=== PATIENT | female | born 1975 | race Two or more races ===

== ENCOUNTER 2019-12-15 22:31 | Inpatient (IN) | payer MEDICAID, OTHER ==
[~2019-12-15] VITALS: Ht 157.5 cm; Wt 89.4 kg
[2019-12-16] VITALS (7 sets, daily range): BP systolic 100–168; BP diastolic 66–105
[2019-12-16] MEDS ORDERED: morphine SULFATE 10 MG/ML, 1ML IVPush ONE (01:30)
[2019-12-16] MEDS: LACTATED RINGERS 1,000 ML IV SCH ×3 (01:39→16:13)
[2019-12-16] MEDS ORDERED: TRAZODONE 50MG TABLET PO PRN (02:30)
[2019-12-16] MEDS ORDERED: ACETAMINOPHEN 325 MG TABLET PO PRN (02:30)
[2019-12-16] MEDS ORDERED: VANCOMYCIN PER PHARMACY MC PRN (02:30)
[2019-12-16] MEDS ORDERED: VANCOMYCIN 2,200 MG in SODIUM CHLORIDE 0.9% 500 ML IV ONE (03:00)
[2019-12-16] MEDS ORDERED: PHARMACOKINETIC CONSULTATION MC ONE (03:00)
[2019-12-16] MEDS ORDERED: PHARMACOKINETIC MONITORING MC PRN (03:00)
[2019-12-16] MEDS: ENOXAPARIN 40 MG/0.4 ML SQ SCH (03:14)
[2019-12-16] MEDS: PIPERACILLIN/TAZO/PMX 3.375GM 50 ML IV SCH ×4 (03:14→21:07)
[2019-12-16 03:16] LABS: BASOPHILS # (AUTO) 0.03 x10^3/uL (0-0.1); BASOPHILS % (AUTO) 0 % (0-1); EOSINOPHILS # (AUTO) 0.05 x10^3/uL (0-0.4); EOSINOPHILS % (AUTO) 1 % (1-7); LYMPHOCYTES # (AUTO) 2.29 x10^3/uL (1-3.4); LYMPHOCYTES % (AUTO) 30 % (22-44); MD NO; MEAN CORPUSCULAR HEMOGLOBIN 27.9 pg (27.0-34.8); MEAN CORPUSCULAR HGB CONC 32.7 g/dL (32.4-35.8); MEAN CORPUSCULAR VOLUME 85.3 fL (80-100); MEAN PLATELET VOLUME 8.6 fL (7.4-10.4); MONOCYTES # (AUTO) 0.52 x10^3/uL (0.2-0.8); MONOCYTES % (AUTO) 7 % (2-9); NEUTROPHILS # (AUTO) 4.73 x10^3/uL (1.8-6.8); NEUTROPHILS % (AUTO) 62 % (42-75); PLATELET COUNT 213 x10^3/uL (130-400); RED BLOOD COUNT 4.35 x10^6/uL (3.82-5.3); RED CELL DISTRIBUTION WIDTH 20.2 % (9.6-15.2)
[2019-12-16 03:26] LABS: D-DIMER 0.8 ug/mlFEU (0.00-0.52); INTERNATIONAL NORMALIZED RATIO 1.11 (0.93-1.1); PROTHROMBIN TIME 11.8 Seconds (9.6-11.5)
[2019-12-16 03:28] LABS: ALBUMIN 2.6 g/dL (3.4-5.0); ANION GAP 9 mmol/L (5-15); CALCIUM 9.1 mg/dL (8.5-10.1); CHLORIDE 106 mmol/L (98-107)
[2019-12-16 03:36] LABS: ALANINE AMINOTRANSFERASE 43 U/L (12-78); ALKALINE PHOSPHATASE 181 U/L (45-117); BILIRUBIN,TOTAL 1.3 mg/dL (0.2-1.0); CREATININE 0.75 mg/dL (0.55-1.02); TOTAL PROTEIN 7.7 g/dL (6.4-8.2); TROPONIN I < 0.015 ng/mL (0.000-0.045)
[2019-12-16] MEDS: INSULIN LISPRO 100 UNITS/ML, PEN SQ-INSULIN SCH ×5 (04:00→21:09)
[2019-12-16 04:05] LABS: AMPHETAMINE SCREEN, URINE Negative (Negative); BARBITURATE SCREEN, URINE Negative (Negative); BENZODIAZEPINE SCREEN, URINE Negative (Negative); CANNABINOID SCREEN, URINE Negative (Negative); COCAINE SCREEN, URINE Negative (Negative); METHADONE SCREEN, URINE Negative (Negative); OPIATE SCREEN, URINE Positive (Negative)
[2019-12-16] MEDS: OXYcodone IR 5MG TABLET PO PRN (04:24)
[2019-12-16] MEDS ORDERED: POTASSIUM CHLORIDE 40 MEQ in SODIUM CHLORIDE 0.9% 500 ML IV ONE (04:30)
[2019-12-16] MEDS ORDERED: MAGNESIUM SULFATE/D5W 100 ML IV ONE (04:30)
[2019-12-16] MEDS: PROMETHAZINE 25 MG/ML, 1ML IM PRN (04:54)
[2019-12-16] MEDS: morphine SULFATE 10 MG/ML, 1ML IVPush PRN ×4 (06:08→21:08)
[2019-12-16] MEDS: LABETALOL 5MG/ML, 20ML IVPush PRN (06:26)
[2019-12-16 08:30] LABS: TROPONIN I < 0.015 ng/mL (0.000-0.045)
[2019-12-16] MEDS ORDERED: TIZA6CAP PO (08:42)
[2019-12-16] MEDS ORDERED: PREG100C PO (08:42)
[2019-12-16] MEDS ORDERED: LISI5TAB7 PO (08:42)
[2019-12-16] MEDS ORDERED: DULO30CA2 PO ×2 (08:42→22:47)
[2019-12-16] MEDS: VANCOMYCIN 1,700 MG in SODIUM CHLORIDE 0.9% 250 ML IV SCH (16:12)
[2019-12-16] MEDS: TIZANIDINE 4MG TABLET PO PRN (16:53)
[2019-12-16] MEDS ORDERED: OMNIPAQUE 350 MG/ML, 100ML BOTTLE ONE (18:52)
[2019-12-16] MEDS ORDERED: MAGN400T9 PO (22:55)
[2019-12-16] MEDS ORDERED: POTA20TA89 PO (22:55)
[2019-12-16] MEDS ORDERED: HYDR-36 PO (22:55)
[2019-12-16] MEDS ORDERED: RANI-244 PO (22:55)
[2019-12-17 00:10] VITALS: BP 101/60
[2019-12-17] MEDS: POTASSIUM CHLORIDE 20 MEQ TAB.ER.PRT PO SCH (00:18)
[2019-12-17] MEDS: PREGABALIN 200 MG CAPSULE PO SCH ×3 (00:18→21:32)
[2019-12-17] MEDS: MAGNESIUM OXIDE 400 MG TABLET PO SCH (00:18)
[2019-12-17] MEDS: DULOXETINE 30 MG CAPSULE.DR PO SCH ×2 (00:18→21:31)
[2019-12-17] MEDS: morphine SULFATE 10 MG/ML, 1ML IVPush PRN (00:27)
[2019-12-17] MEDS: ENOXAPARIN 40 MG/0.4 ML SQ SCH (02:43)
[2019-12-17] MEDS: PIPERACILLIN/TAZO/PMX 3.375GM 50 ML IV SCH ×4 (02:43→23:04)
[2019-12-17] MEDS: OXYcodone IR 5MG TABLET PO PRN ×3 (02:44→21:32)
[2019-12-17] MEDS: TIZANIDINE 4MG TABLET PO PRN ×2 (02:47→21:34)
[2019-12-17] MEDS: VANCOMYCIN 1,700 MG in SODIUM CHLORIDE 0.9% 250 ML IV SCH ×2 (04:34→18:07)
[2019-12-17 06:53] LABS: BASOPHILS # (AUTO) 0.02 x10^3/uL (0-0.1); BASOPHILS % (AUTO) 1 % (0-1); EOSINOPHILS # (AUTO) 0.12 x10^3/uL (0-0.4); EOSINOPHILS % (AUTO) 3 % (1-7); LYMPHOCYTES # (AUTO) 1.43 x10^3/uL (1-3.4); LYMPHOCYTES % (AUTO) 37 % (22-44); MD NO; MEAN CORPUSCULAR HEMOGLOBIN 28.2 pg (27.0-34.8); MEAN CORPUSCULAR HGB CONC 32.4 g/dL (32.4-35.8); MEAN PLATELET VOLUME 8.6 fL (7.4-10.4); MONOCYTES # (AUTO) 0.34 x10^3/uL (0.2-0.8); MONOCYTES % (AUTO) 9 % (2-9); NEUTROPHILS # (AUTO) 1.94 x10^3/uL (1.8-6.8); NEUTROPHILS % (AUTO) 51 % (42-75); PLATELET COUNT 126 x10^3/uL (130-400); RED BLOOD COUNT 3.75 x10^6/uL (3.82-5.3); RED CELL DISTRIBUTION WIDTH 20.5 % (9.6-15.2)
[2019-12-17 06:55] LABS: ALBUMIN 2.1 g/dL (3.4-5.0); ANION GAP 7 mmol/L (5-15); CALCIUM 7.9 mg/dL (8.5-10.1); CHLORIDE 107 mmol/L (98-107)
[2019-12-17 06:59] LABS: ALANINE AMINOTRANSFERASE 35 U/L (12-78); ALKALINE PHOSPHATASE 144 U/L (45-117); BILIRUBIN,TOTAL 1.4 mg/dL (0.2-1.0); CREATININE 0.66 mg/dL (0.55-1.02); TOTAL PROTEIN 6.7 g/dL (6.4-8.2)
[2019-12-17] MEDS: INSULIN LISPRO 100 UNITS/ML, PEN SQ-INSULIN SCH ×4 (08:01→21:00)
[2019-12-17 09:22] VITALS: BP 113/68
[2019-12-17 15:08] VITALS: BP 153/98
[2019-12-17] MEDS: LACTATED RINGERS 1,000 ML IV SCH (16:57)
[2019-12-17 18:53] VITALS: BP 154/106
[2019-12-18 00:42] VITALS: BP 110/77
[2019-12-18 04:50] LABS: BASOPHILS # (AUTO) 0.01 x10^3/uL (0-0.1); BASOPHILS % (AUTO) 0 % (0-1); EOSINOPHILS # (AUTO) 0.15 x10^3/uL (0-0.4); EOSINOPHILS % (AUTO) 5 % (1-7); LYMPHOCYTES # (AUTO) 1.33 x10^3/uL (1-3.4); LYMPHOCYTES % (AUTO) 40 % (22-44); MD NO; MEAN CORPUSCULAR HEMOGLOBIN 28.4 pg (27.0-34.8); MEAN CORPUSCULAR HGB CONC 32.7 g/dL (32.4-35.8); MEAN CORPUSCULAR VOLUME 86.6 fL (80-100); MEAN PLATELET VOLUME 8.8 fL (7.4-10.4); MONOCYTES % (AUTO) 9 % (2-9); NEUTROPHILS % (AUTO) 46 % (42-75); PLATELET COUNT 104 x10^3/uL (130-400); RED BLOOD COUNT 3.51 x10^6/uL (3.82-5.3); RED CELL DISTRIBUTION WIDTH 20.4 % (9.6-15.2)
[2019-12-18 05:02] LABS: ALBUMIN 2.1 g/dL (3.4-5.0); ANION GAP 7 mmol/L (5-15); CALCIUM 8.2 mg/dL (8.5-10.1); CHLORIDE 106 mmol/L (98-107)
[2019-12-18] MEDS: ENOXAPARIN 40 MG/0.4 ML SQ SCH (05:04)
[2019-12-18] MEDS: PIPERACILLIN/TAZO/PMX 3.375GM 50 ML IV SCH ×2 (05:04→10:56)
[2019-12-18 05:06] LABS: ALANINE AMINOTRANSFERASE 29 U/L (12-78); ALKALINE PHOSPHATASE 142 U/L (45-117); BILIRUBIN,TOTAL 1.1 mg/dL (0.2-1.0); CREATININE 0.57 mg/dL (0.55-1.02); TOTAL PROTEIN 6.5 g/dL (6.4-8.2); VANCOMYCIN,TROUGH 20.8 mcg/mL (5.0-10.0)
[2019-12-18] MEDS: OXYcodone IR 5MG TABLET PO PRN ×5 (05:09→20:59)
[2019-12-18] MEDS: VANCOMYCIN 1,700 MG in SODIUM CHLORIDE 0.9% 250 ML IV SCH (06:26)
[2019-12-18 07:22] VITALS: BP 158/113
[2019-12-18] MEDS: PREGABALIN 200 MG CAPSULE PO SCH ×2 (08:38→20:09)
[2019-12-18] MEDS: POTASSIUM CHLORIDE 20 MEQ TAB.ER.PRT PO SCH (08:38)
[2019-12-18] MEDS: MAGNESIUM OXIDE 400 MG TABLET PO SCH (08:38)
[2019-12-18] MEDS: INSULIN LISPRO 100 UNITS/ML, PEN SQ-INSULIN SCH ×4 (08:39→20:10)
[2019-12-18] MEDS: TIZANIDINE 4MG TABLET PO PRN ×2 (08:49→20:25)
[2019-12-18 12:34] VITALS: BP 118/81
[2019-12-18] MEDS ORDERED: VANCOMYCIN 1,600 MG in SODIUM CHLORIDE 0.9% 250 ML IV SCH (18:00)
[2019-12-18 19:22] VITALS: BP 147/88
[2019-12-18] MEDS: AMOXICILLIN/CLAV 875-125MG TABLET PO SCH (20:09)
[2019-12-18] MEDS: DULOXETINE 30 MG CAPSULE.DR PO SCH (20:09)
[2019-12-19 01:40] VITALS: BP 123/85
[2019-12-19] MEDS: OXYcodone IR 5MG TABLET PO PRN ×6 (03:08→21:15)
[2019-12-19] MEDS: ENOXAPARIN 40 MG/0.4 ML SQ SCH (04:54)
[2019-12-19 06:59] VITALS: BP 167/107
[2019-12-19 07:36] LABS: BASOPHILS # (AUTO) 0.04 x10^3/uL (0-0.1); BASOPHILS % (AUTO) 1 % (0-1); EOSINOPHILS # (AUTO) 0.12 x10^3/uL (0-0.4); EOSINOPHILS % (AUTO) 3 % (1-7); LYMPHOCYTES # (AUTO) 1.19 x10^3/uL (1-3.4); LYMPHOCYTES % (AUTO) 32 % (22-44); MD NO; MEAN CORPUSCULAR HEMOGLOBIN 28.7 pg (27.0-34.8); MEAN CORPUSCULAR HGB CONC 32.8 g/dL (32.4-35.8); MEAN CORPUSCULAR VOLUME 87.5 fL (80-100); MEAN PLATELET VOLUME 8.3 fL (7.4-10.4); MONOCYTES # (AUTO) 0.36 x10^3/uL (0.2-0.8); MONOCYTES % (AUTO) 10 % (2-9); NEUTROPHILS # (AUTO) 2.05 x10^3/uL (1.8-6.8); NEUTROPHILS % (AUTO) 55 % (42-75); PLATELET COUNT 109 x10^3/uL (130-400); RED BLOOD COUNT 3.76 x10^6/uL (3.82-5.3)
[2019-12-19] MEDS: TIZANIDINE 4MG TABLET PO PRN ×2 (07:46→21:14)
[2019-12-19 07:49] LABS: ALBUMIN 2.3 g/dL (3.4-5.0); ANION GAP 6 mmol/L (5-15); CALCIUM 8.9 mg/dL (8.5-10.1); CHLORIDE 104 mmol/L (98-107); CREATININE 0.56 mg/dL (0.55-1.02)
[2019-12-19] MEDS: POTASSIUM CHLORIDE 20 MEQ TAB.ER.PRT PO SCH (08:30)
[2019-12-19] MEDS: INSULIN LISPRO 100 UNITS/ML, PEN SQ-INSULIN SCH ×4 (08:30→21:14)
[2019-12-19] MEDS: AMOXICILLIN/CLAV 875-125MG TABLET PO SCH ×2 (08:30→21:16)
[2019-12-19] MEDS: PREGABALIN 200 MG CAPSULE PO SCH ×2 (08:30→21:14)
[2019-12-19] MEDS: MAGNESIUM OXIDE 400 MG TABLET PO SCH (08:30)
[2019-12-19 13:31] VITALS: BP 141/94
[2019-12-19 19:19] VITALS: BP 154/112
[2019-12-19] MEDS: LABETALOL 5MG/ML, 20ML IVPush PRN (19:55)
[2019-12-19 21:13] VITALS: BP 143/98
[2019-12-19] MEDS: DULOXETINE 30 MG CAPSULE.DR PO SCH (21:15)
[2019-12-19] MEDS: PROMETHAZINE 25 MG/ML, 1ML IM PRN (22:55)
[2019-12-20 01:47] VITALS: BP 138/91
[2019-12-20] MEDS: OXYcodone IR 5MG TABLET PO PRN ×3 (02:36→11:06)
[2019-12-20] MEDS: ENOXAPARIN 40 MG/0.4 ML SQ SCH (05:25)
[2019-12-20 05:56] LABS: BASOPHILS # (AUTO) 0.02 x10^3/uL (0-0.1); BASOPHILS % (AUTO) 1 % (0-1); EOSINOPHILS # (AUTO) 0.13 x10^3/uL (0-0.4); EOSINOPHILS % (AUTO) 4 % (1-7); LYMPHOCYTES # (AUTO) 1.23 x10^3/uL (1-3.4); LYMPHOCYTES % (AUTO) 34 % (22-44); MD NO; MEAN CORPUSCULAR HEMOGLOBIN 28.3 pg (27.0-34.8); MEAN CORPUSCULAR HGB CONC 32.7 g/dL (32.4-35.8); MEAN CORPUSCULAR VOLUME 86.5 fL (80-100); MEAN PLATELET VOLUME 8.9 fL (7.4-10.4); MONOCYTES # (AUTO) 0.32 x10^3/uL (0.2-0.8); MONOCYTES % (AUTO) 9 % (2-9); NEUTROPHILS % (AUTO) 53 % (42-75); PLATELET COUNT 106 x10^3/uL (130-400); RED BLOOD COUNT 3.69 x10^6/uL (3.82-5.3); RED CELL DISTRIBUTION WIDTH 20.8 % (9.6-15.2)
[2019-12-20] MEDS ORDERED: METOPROLOL SUCCINATE 25 MG TAB.ER.24H PO SCH (06:00)
[2019-12-20 06:14] LABS: ANION GAP 7 mmol/L (5-15); CALCIUM 8.5 mg/dL (8.5-10.1); CHLORIDE 104 mmol/L (98-107)
[2019-12-20] MEDS: TIZANIDINE 4MG TABLET PO PRN (06:27)
[2019-12-20 06:36] VITALS: BP 140/98
[2019-12-20] MEDS: POTASSIUM CHLORIDE 20 MEQ TAB.ER.PRT PO SCH (08:24)
[2019-12-20] MEDS: PREGABALIN 200 MG CAPSULE PO SCH (08:24)
[2019-12-20] MEDS: AMOXICILLIN/CLAV 875-125MG TABLET PO SCH (08:24)
[2019-12-20] MEDS: MAGNESIUM OXIDE 400 MG TABLET PO SCH (08:24)
[2019-12-20] MEDS: INSULIN LISPRO 100 UNITS/ML, PEN SQ-INSULIN SCH ×2 (08:25→13:02)
[2019-12-20] MEDS ORDERED: METO25TA91 PO (11:56)
[2019-12-20] MEDS ORDERED: AMOX1TAB12 PO (11:56)
[2019-12-20 12:01] VITALS: BP 122/86
== END 2019-12-20 13:25 | disposition home or self-care (01) | DRG 871 ==
LOC: ICU 12-16 00:35 → 4EST 12-16 20:07
PROVIDERS: ADMIT Family Medicine; ATTEND Hospitalist
DX: A41.9 Sepsis, unspecified organism (principal); J18.9 Pneumonia, unspecified organism; E87.2 Acidosis; E11.9 Type 2 diabetes mellitus without complications; E66.9 Obesity, unspecified; F17.200 Nicotine dependence, unspecified, uncomplicated; G89.29 Other chronic pain; I10 Essential (primary) hypertension; K21.9 Gastro-esophageal reflux disease without esophagitis; R74.0 Nonspecific elevation of levels of transaminase and lactic acid dehydrogenase [LDH]; R00.0 Tachycardia, unspecified; Y95 Nosocomial condition; Z79.4 Long term (current) use of insulin; Z79.891 Long term (current) use of opiate analgesic; Z90.49 Acquired absence of other specified parts of digestive tract; Z68.36 Body mass index [BMI] 36.0-36.9, adult
CPT/HCPCS: 36415; 71275; 76700; 80048; 80053; 80202; 80307; 82040; 82140; 82962; 83036; 83605; 83690; 83735; 84100; 84145; 84443; 84484; 85025; 85379; 85610; 87040; 87081; 93005; 93970; G0378; J1650; J2543; J2550; J3370; J3480; Q9967; J1815; J2270; J7040; J7050; J7120